=== PATIENT | male | born 1980 ===

== ENCOUNTER 2017-12-28 07:37 | Emergency (ER) | payer SELFPAY ==
[2017-12-28 07:44] VITALS: BP 142/93; PULSE 71; RESP 18; TEMP 98
[2017-12-28 07:45] VITALS: BMI 28.4
[2017-12-28 08:15] VITALS: O2SAT 98
--- NOTE | 2017-12-28 09:05 | ED PDOC ---
HPI: Dental Pain/Injury Time Seen by Provider: 12/28/17 08:57 Chief Complaint (Nursing): Dental Pain History Per: Patient Onset/Duration Of Symptoms: Other (1 month) Current Symptoms Are (Timing): Still Present Severity: Moderate Pain Scale Rating Of: 4 Quality: Aching Additional Complaint(s): Pain left upper molar x 1 month. Told he needs root canal but cannot afford it. Past Medical History Vital Signs: Last Vital Signs Temp 98 F 12/28/17 07:43 Pulse 71 12/28/17 07:43 Resp 18 12/28/17 07:43 BP 142/93 H 12/28/17 07:43 Pulse Ox 98 12/28/17 08:06 - Medical History PMH: No Chronic Diseases - Family History Family History: States: Unknown Family Hx - Immunization History Hx Tetanus Toxoid Vaccination: No Hx Influenza Vaccination: No Hx Pneumococcal Vaccination: No - Home Medications Home Medications: Ambulatory Orders Medication Instructions Recorded Promethazine DM [Phenergan DM 5 ml PO Q8 PRN #120 ml 06/11/15 Syrup] Naproxen [Naprosyn] 500 mg PO Q12H #20 tab 12/28/17 Penicillin VK [Penicillin VK Tab] 500 mg PO Q6 #40 tab 12/28/17 - Allergies Allergies/Adverse Reactions: Allergies Allergy/AdvReac Type Severity Reaction Status Date / Time No Known Allergies Allergy Verified 06/11/15 15:47 Review of Systems Constitutional: Negative for: Fever ENT: Positive for: Other (Toothache) Physical Exam - Physical Exam Appears: Positive for: Non-toxic, No Acute Distress Skin: Positive for: Normal Color, Warm, DRY ENT: Positive for: Other (No carries or abscess noted) - ECG O2 Sat by Pulse Oximetry: 98 Disposition - Clinical Impression Clinical Impression: Toothache - Patient ED Disposition Is Patient to be Admitted: No Counseled Patient/Family Regarding: Diagnosis, Need For Followup, Rx Given - Disposition Referrals: Tyler Burt DDS [Staff Provider] - Disposition: Routine/Home Disposition Time: 09:05 Condition: FAIR Prescriptions: Naproxen [Naprosyn] 500 mg PO Q12H #20 tab Penicillin VK [Penicillin VK Tab] 500 mg PO Q6 #40 tab Instructions: Dental Pain Print Language: BELIZEAN
== END 2017-12-28 09:44 | disposition home or self-care (01) ==
LOC: H.ER 07:37
DX: K08.89 Other specified disorders of teeth and supporting structures (principal)